=== PATIENT | female | born 1965 | race Caucasian/White ===

== ENCOUNTER 2016-10-28 13:57 | Observation (INO) | payer MEDICARE, MEDICAID ==
[~2016-10-28] VITALS: Ht 162.6 cm; Wt 181.8 kg
[2016-10-28 13:57] VITALS: BP 108/57; PULSE 83; RESP 21; O2SAT 99
[~2016-10-28 13:57] MED LIST: AMPH10SR PO; ASPI-973 PO; ATEN25TA PO; ATRV10T PO; BACL10TA PO; CITA40TA13 PO; FLUT1DIS5 INHALATION; IBUP800T28 PO; INSU100V4 SUBQ; LEVO50TA6 PO; METF850T2 PO; NYST1POW25 TOPICAL; OXYC-466 PO; PANT40TA2 PO; PRAM0.5T3 PO; RANI150T11 PO
--- NOTE | 2016-10-28 14:41 | DRSVH ---
PROCEDURE: X-RAY CHEST ONE VIEW, PORTABLE ([id number]) INDICATIONS: weakness TECHNIQUE: One view of the chest was acquired. COMPARISON: [facility], CR, XR CHEST 1VW, 06/04/2016, 13:46. [facility], CR, XR CHEST 1VW (PORTABLE), 05/26/2016, 16:18. FINDINGS: Surgical changes and devices: None. Lungs and pleura: No pleural effusions or pneumothorax. Lungs are clear. Mediastinum: Mediastinal contours appear normal. Heart size is normal. Bones and chest wall: No suspicious bony lesions. Overlying soft tissues appear unremarkable. IMPRESSION: No acute cardiopulmonary disease. Dictated by: Catalina Barksdale M.D. on 10/28/2016 at 14:39 Approved by: Catalina Barksdale M.D. on 10/28/2016 at 14:39
[2016-10-28] MEDS ORDERED: HYDROmorphone 0.5 mg/0.5 mL iSecure Syringe IVPUSH PRN (15:00)
[2016-10-28] MEDS ORDERED: Ondansetron 2 mg/mL 2 mL Inj IVPUSH PRN ×2 (15:00→19:30)
[2016-10-28] MEDS ORDERED: HYDROmorphone 1 mg/mL Inj IVPUSH PRN (15:00)
[2016-10-28 15:30] LABS: Mean Corpuscular Hemoglobin 28.8 pg (27.0-35.0); Platelet Count 150 bil/L (150-400)
[2016-10-28 15:54] LABS: BASOPHILS % (AUTO) 0 % (0-3); EOSINOPHILS % (AUTO) 7 % (0-5); MONOCYTES % (AUTO) 8 % (4-12); NEUTROPHILS % (AUTO) 67 % (40-74)
[2016-10-28] MEDS ORDERED: 0.9% Sodium Chloride 1,000 ML IV ONE (15:55)
--- NOTE | 2016-10-28 15:55 | ED.REPORT ---
HPI-General Illness Date of Service Oct 28, 2016 ED Provider: Merlin Florez DO The patient is a 51 year old female with history of diabetes mellitus, decubitus ulcers, morbid obesity, hypothyroidism, osteoarthritis, hypertension. GERD, asthma, restless leg syndrome, and depression, who presents to the emergency department complaining of left lower extremity pain and swelling that has worsened over the last few days. She denies recent falls or trauma. She has also noticed generalized weakness and is unable to get herself out of her chair at home. She lives alone and has a apartment maintenance caregiver. She was recently hospitalized from 10/23-10/25 for the same symptoms. She was able to walk at home after she was discharged. Nursing Notes Stated Complaint: WEAKNESS Chief Complaint: General Complaint Nursing Notes Reviewed: Yes Allergies: Coded Allergies: Penicillins (Verified Allergy, Unknown, 10/23/16) amoxicillin (Verified Allergy, Unknown, 10/23/16) Uncoded Allergies: ALL CILLINS (Allergy, Unknown, 06/04/16) Scheduled Aspirin (Aspirin) 81 Mg Tablet 81 MG PO DAILY Atenolol (Atenolol) 25 Mg Tablet 25 MG PO DAILY Atorvastatin (Lipitor) 10 Mg Tab 10 MG PO HS Baclofen (Baclofen) 10 Mg Tablet 10 MG PO QID Budesonide/Formoterol 160-4.5 mcg Inh (Symbicort 160-4.5 mcg Inh) 120 Puff Inhaler 2 PUFFS INHALATION BID Citalopram (Citalopram) 40 Mg Tablet 40 MG PO DAILY Dextroamphetamine/Amphetamine ER (Adderall XR) 10 Mg Capsule 10 MG PO DAILY Insulin Detemir (Levemir U100 Insulin Vial) 100 Unit/1 Ml Vial 50 UNIT SUBQ MORNING Levothyroxine (Levothyroxine) 50 Mcg Tablet 50 MCG PO QAM Metformin (Metformin) 850 Mg Tablet 850 MG PO DAILY Nystatin (Nystatin) 1 Each Powder.ea. 1 APPLIC TOPICAL BID Pantoprazole DR (Protonix) 40 Mg Tablet 40 MG PO DAILY Pramipexole Dihydrochloride (Mirapex) 0.5 Mg Tablet 0.5 MG PO TID Ranitidine (Zantac) 150 Mg Tablet 150 MG PO BID Scheduled PRN Ibuprofen (Ibuprofen) 800 Mg Tablet 800 MG PO TID PRN PRN For Pain oxyCODONE-Acetaminophen 10-325 mg (oxyCODONE-Acetaminophen 10-325 mg) 1 Each Tablet 1 TAB PO Q6H PRN PRN For Pain General Time Seen by MD: 15:19 Chief Complaint Weakness Hx Obtained From: Patient, EMS Arrived By: Ambulance Sudden in Onset?: No Onset Occurred: 3 days ago Symptom Duration: Since onset Location: : Leg left Quality: Painful Radiation: : Does not radiate Severity: Current: Moderate Severity: Maximum: Severe Recent Healthcare: Recent doctor visit, Recent hospitalization Similar Sx Previous: Yes Past Medical History Past Medical History Notes: Last admitted May for cellulitis of bilateral decubitus ulcer Past Medical History Arthritis Morbid obesity ho Proteus UTI 05/2016 Sleep Apnea, given trilogy CPAP Reports: Asthma, Diabetes mellitus, GERD, Hypertension Reports: Morbid Obesity, Thyroid disease Past Surgical History Reports: Back/neck surgery, Carpal tunnel, Tubal ligation Smoking History Current Every Day Smoker Social History Lives alone and has a apartment maintenance caregiver Alcohol Use: Denies alcohol use Drug Use: Denies drug use Other Social History: Local resident Occupation single lives by self Ambulatory Status Wheelchair Review of Systems Full Review of Systems Constitutional: Reports: Weakness - generalized Musculoskeletal: Reports: Extremity pain, Extremity swelling, Joint pain, Joint swelling Neurologic: Reports: Problem walking, Weakness Complete sys rev & neg: except as marked. Physical Exam Vital Signs Vital Signs Date Time Temp Pulse Resp B/P Pulse Ox O2 Delivery O2 Flow Rate FiO2 10/28/16 13:57 36.7 83 21 108/57 99 Room Air Initial VS: Reviewed Head / Eyes: Atraumatic, Normocephalic, PERRL ENT: Mucous membranes moist, Conjunctiva normal, No scleral icterus Neck: Supple, Non-tender, Full range of motion Respiratory: Breath sounds normal, Clear to auscultation, No respiratory distress Cardiovascular: Regular rate & rhythm, Heart sounds normal, Intact distal pulses Abdomen / GI: Soft, Non-tender, No guarding, No rebound, No distention Lymphatic: No lymphadenopathy Extremities: Vascular intact, Neuro intact Neurologic: Alert, Oriented, Nonfocal Psychiatric: Mood/affect normal, Behavior normal, Normal thought content General/Constitutional: Awake, Alert Appearance / Presentation: Positive: Obese, morbidly Skin: Warm Rash / Lesion Notes: She has a stage II decubitus ulcer on her perineum that does not look infected. Interpretation & Diagnostics Lab Results Interpretation Result Diagram: 10/28/16 1450 10/28/16 1450 Test 10/28/16 14:50 10/28/16 15:12 10/28/16 16:20 White Blood Count 5.7th/mm3 (3.8-10.1) Red Blood Count 4.89mil/mm3 (3.90-5.20) Hemoglobin 14.1g/dL (12.0-15.6) Hematocrit 44.0% (35.0-46.0) Mean Corpuscular Volume 90.0fL (81-100) Mean Corpuscular Hemoglobin 28.8pg (27.0-35.0) Mean Corpuscular Hemoglobin Concent 32.0% (32.0-37.0) Red Cell Distribution Width 14.9% (12.3-15.4) Platelet Count 150bil/L (150-400) Neutrophils (%) (Auto) 67% (40-74) Lymphocytes (%) (Auto) 18% (14-46) Monocytes (%) (Auto) 8% (4-12) Eosinophils (%) (Auto) 7% (0-5) Basophils (%) (Auto) 0% (0-3) Sodium Level 137mEq/L (134-144) Potassium Level 5.7mEq/L (3.5-5.2) Chloride Level 99mEq/L (97-108) Carbon Dioxide Level 23mmol/L (18-29) Blood Urea Nitrogen 15mg/dL (6-24) Creatinine 0.40mg/dL (0.57-1.00) Estimat Glomerular Filtration Rate 242mL/min (>59) Glucose Level 130mg/dL (60-99) Calcium Level 8.7mg/dL (8.5-10.1) Total Bilirubin 0.2mg/dL (0.0-1.2) Aspartate Amino Transf (AST/SGOT) 45U/L (0-50) Alanine Aminotransferase (ALT/SGPT) 32U/L (0-32) Alkaline Phosphatase 73U/L (25-150) Troponin T < 0.010ug/L (0.0-0.011) Pro-B-Type Natriuretic Peptide 78.68pg/mL (0-249) Total Protein 6.7g/dL (6.4-8.4) Albumin 3.2g/dL (3.4-5.0) Lactic Acid Level 1.4mmol/L (0.4-2.0) Procalcitonin < 0.05ng/mL (See Comment) Urine Color Yellow (YELLOW) Urine Appearance Hazy (CLEAR,HAZY) Urine pH 6.5 (5.0-8.0) Urine Specific [place] 1.025 (1.003-1.035) Urine Protein Tracemg/dL (NEG,TRACE) Urine Glucose (UA) 500mg/dL (NEGATIVE) Urine Ketones Negativemg/dL (NEGATIVE) Urine Occult Blood Large (NEGATIVE) Urine Nitrite Negative (NEGATIVE) Urine Bilirubin Negative (NEGATIVE) Urine Urobilinogen 1.0mg/dL (NORMAL) Urine Leukocyte Esterase Small (NEGATIVE) Urine RBC 3-10/hpf (0-2) Urine WBC 6-10/hpf (0-5) Urine Epithelial Cells None/hpf (NONE-MOD) Urine Crystals None seen (NONE SEEN) Urine Bacteria Many/hpf (NONE-FEW) Urine Hyaline Casts None/lpf (NONE) Urine Granular Casts None seen (NONE SEEN) Urine Waxy Casts None seen (NONE SEEN) Urine Red Blood Cell Casts None seen (NONE SEEN) Urine White Blood Cell Casts None seen (NONE SEEN) Urine Mucus Present (None Seen) Urine Trichomonas None seen (NONE SEEN) Urine Yeast None (NONE SEEN) Urinalysis Comment None Urine Culture Reflexed Indicated ECG Interpretation ECG Interpretation: Sinus rhythm with a a QRS of 121 otherwise nothing acute. Time: 15:30 Interpreted by: ED physician X-Ray Chest Interpretation Chest Xray Interpretation: IMPRESSION: No acute cardiopulmonary disease. Dictated by: Catalina Barksdale M.D. on 10/28/2016 at 14:39 Interpretation / Wet Read by: Interpret - Radiologist Re-Eval/Medical Decision Med Decision/Clinical Course Inability to care for self, consulted with social work and there seems to be no reasonable outpatient option. Patient will be admitted pending placement. Source of Hx: Old records, EMS Time of Eval: 16:46 Re-Evaluation/Progress Note: Rechecked the patient. She would like to be placed in a snf facility but her insurance requires that she is hospitalized for 3 days. She was in a rehab center for 4 months, home for 14 days, then admitted to the hospital. Time of Eval: 17:38 Re-Evaluation/Progress Note: Will try to admit the patient. Consultation #1: Consulted With: group worker Call Returned at: 16:59 Note: Discussed the patient's case with ED social worker masters. Consultation #2: Consulted With: group worker Call Returned at: 17:21 Note: The patient canceled her caregivers over the weekend because she thought she was going to be admitted today. The company is not open until Monday to contact. The patient may be able to be placed at the rehab center she was recently at for 4 months but this will not be possible tonight. Will need to admit the patient tonight. Consultation #3: Referral / Consult Name: Monica Pruett MD Consulted With: Hospitalist Call Returned at: 19:25 Penology Professor: Will see patient, Agrees with eval, Agrees with plan, Accepts admit Counseled Regarding: Diagnosis, Lab results, Need for admission Discharge & Departure Primary Impression: Failure to thrive Failure to thrive age range: in adult Qualified Code: R62.7 - Adult failure to thrive Additional Impressions: Morbid obesity Obesity type: unspecified obesity type Qualified Code: E66.01 - Morbid ( severe) obesity due to excess calories Decubitus ulcer Pressure ulcer stage: stage II Qualified Code: L89.92 - Pressure ulcer of unspecified site, stage 2 Disposition: ADMITTED TO HOSPITAL Discharge Condition All VS Reviewed: Yes Condition: Stable Referrals: Anjel Stone MD (PCP) Scribe Attestation Portions of this note were transcribed by Desiree Burnett. I, Dr. Florez personally performed the history, physical exam and medical decision-making; I reviewed and confirmed the accuracy of the information in the transcribed note. Signed by: Yefri Jacobsen, 10/28/16 and 1930. copies to: Anjel Stone MD, Timothy S DO Oct 28, 2016 15:55 Desiree Burnett Oct 28, 2016 16:01
[2016-10-28 16:13] LABS: TROPONIN T < 0.010 ug/L (0.0-0.011)
[2016-10-28 16:39] LABS: APPEARANCE,URINE HAZY (CLEAR,HAZY); COLOR,URINE YELLOW (YELLOW); PH,URINE 6.5 (5.0-8.0)
[2016-10-28 16:40] LABS: OCCULT BLOOD,URINE LARGE (NEGATIVE)
[2016-10-28] MEDS ORDERED: SYMINH INHALATION (18:27)
--- NOTE | 2016-10-28 18:50 | NUR ---
Case Management D: Pre-admission HINN letter explained to pt. Pt signed letter acknowledging that medical necessity for admission is not seen. I have encouraged her to call [facility] to have them to review this admission.
[2016-10-28] MEDS ORDERED: Alum-Mag Hydrox-Simeth 30 mL Suspension PO PRN (19:30)
[2016-10-28 19:38] VITALS: BP 127/47; PULSE 80; RESP 16; O2SAT 95
[2016-10-28] MEDS ORDERED: oxyCODONE-Acetamin 10-325 mg Tablet PO PRN (20:40)
[2016-10-28 20:47] VITALS: BP 116/72; PULSE 86; RESP 16; O2SAT 94
[2016-10-28] MEDS ORDERED: Ondansetron 8 mg ODT Tablet PO PRN (20:50)
--- NOTE | 2016-10-28 21:29 | PCM.HPMED ---
Subjective Date of Service Oct 28, 2016 Primary Provider: Admitting Physician: Monica Pruett MD Primary Care Physician: Anjel Stone MD Attending Physician: Monica Pruett MD Admit Status: From the Emergency Department Chief Complaint: Generalized weakness and left lower extremity swelling History of Present Illness: The patient is a 51 year-old female with history of diabetes mellitus, decubitus ulcers, morbid obesity, hypothyroidism, osteoarthritis, hypertension. GERD, asthma, restless leg syndrome, and depression, who presented to the emergency department complaining of left lower extremity pain and swelling that has worsened over the last few days. She denies recent falls or trauma. She has also noticed increased weakness and is unable to get herself out of her chair at home. 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 She was recently hospitalized from 10/23-10/25 for the same symptoms. She was able to walk at home after she was discharged. She feels like she needs more help with her health in general and feels that she is not able to adequately care for herself. Review of Systems: As per HPI, otherwise negative Allergies Coded Allergies: Penicillins (Verified Allergy, Unknown, 10/23/16) amoxicillin (Verified Allergy, Unknown, 10/23/16) Uncoded Allergies: ALL CILLINS (Allergy, Unknown, 06/04/16) Home Medications From ED records and confirmed with patient: Aspirin (Aspirin) 81 Mg Tablet 81 MG PO DAILY Atenolol (Atenolol) 25 Mg Tablet 25 MG PO DAILY Atorvastatin (Lipitor) 10 Mg Tab 10 MG PO HS Baclofen (Baclofen) 10 Mg Tablet 10 MG PO QID -L-c-c-j-c-z-n-i-d-e--/--P-m-s-a-g-l-e-r-o-l- -0-4-9-----4-.-5- -m-c-g- -I-n-h- -(--B-d-v-b-c-u-o-r-t- -6-8-2-----4-.-5- -m-c-g- -I-n-h--)- -1-2-0- -P-u-f-f- -Z-u-x-a-l-e-r- -2- -P-U-F-F-S- -C-V-N-R-S-I-T-I-O-N- -B-I-D- Patient uses Spireva Citalopram (Citalopram) 40 Mg Tablet 40 MG PO DAILY -I-z-w-f-t-s-b-g-w-s-u-h-a-m-i-n-e--/--F-e-g-e-k-s-a-m-i-n-e- -E-R- -(- -W-u-n-e-r-a-l-l- -X-R--)- -1-0- -M-g- -N-x-i-s-u-l-e- -1-0- -M-G- -P-O- -D-A-I-L-Y- Discontinued per patient's notes Insulin Detemir (Levemir U100 Insulin Vial) 100 Unit/1 Ml Vial 50 UNIT SUBQ MORNING Levothyroxine (Levothyroxine) 50 Mcg Tablet 50 MCG PO QAM Metformin (Metformin) 850 Mg Tablet 850 MG PO DAILY Nystatin (Nystatin) 1 Each Powder.ea. 1 APPLIC TOPICAL BID Pantoprazole DR (Protonix) 40 Mg Tablet 40 MG PO DAILY Pramipexole Dihydrochloride (Mirapex) 0.5 Mg Tablet 0.5 MG PO TID Ranitidine (Zantac) 150 Mg Tablet 150 MG PO BID Scheduled PRN Ibuprofen (Ibuprofen) 800 Mg Tablet 800 MG PO TID PRN PRN For Pain oxyCODONE-Acetaminophen 10-325 mg (oxyCODONE-Acetaminophen 10-325 mg) 1 Each Tablet 1 TAB PO Q6H PRN PRN For Pain PMH Cellulitis of bilateral decubitus ulcer Arthritis Morbid obesity ho Proteus UTI 05/2016 Reports: Asthma, Diabetes mellitus, GERD, Hypertension Morbid Obesity, Thyroid disease Depression Degenerative disc disorder Asthma Restless leg syndrome Obstructive sleep apnea Surgical History Adenoidectomy Tubal ligation Tonsillectomy Family History 1 sister with DM Brother from [place] Mother from CHF Father from COPD Brother has HTN Social History Occupation: Does not work Hx Alcohol Use: No Hx Substance Use: No Hx Tobacco Use: Yes Smoking Status: Current Every Day Smoker Living Arrangement: Alone Exam Vital Signs Vital Sign - Last Date Time Temp Pulse Resp B/P Pulse Ox O2 Delivery O2 Flow Rate FiO2 10/28/16 20:47 36.2 86 16 116/72 94 Room Air 10/28/16 19:38 2 Exam General: alert, oriented x3, cooperative, no acute distress, morbidly obese, eating [employer] when I examined her because she was worried about hypoglycemia. Strong odor of old urine. Eyes: PERRL, scleral anicteric Mouth: mouth normal, mucous membranes moist/pink Neck: supple, no thyromegaly, trachea midline Chest & Lungs: Difficult to assess with body habitus, did hear expiratory wheezing anterior B/L Cardiovascular: no murmurs/rubs/gallops, regular rate/rhythm Pulses: Radial (present and equal) Abdomen: soft, non-tender, non-distended, normoactive bowel tones Skin: B/L buttocks have erythema and skin breakdown. At the time of my exam, it was thickly covered with skin protectant cream. Extremities: B/L LE edema, erythema and much worse on the left than the right Psych: Poor insight, appropriate mood and affect . Lab and Diagnostics Labs Lactic acid 1.4; procalcitonin <0.05; ProBNP 78.68; tropnonin T <0.010 Result Diagram: 10/28/16 1450 10/28/16 1450 Microbiology Microbiology 10/28/16 Blood Culture, Received Pending 10/28/16 Urine Culture, Received Pending X-Rays, CTs and MRIs Date of Service: 10/28/16 1409 PROCEDURE: X-RAY CHEST ONE VIEW, PORTABLE ([id number]) INDICATIONS: weakness TECHNIQUE: One view of the chest was acquired. COMPARISON: [facility], CR, XR CHEST 1VW, 06/04/2016, 13:46. [facility], CR, XR CHEST 1VW (PORTABLE), 05/26/2016, 16:18. FINDINGS: Surgical changes and devices: None. Lungs and pleura: No pleural effusions or pneumothorax. Lungs are clear. Mediastinum: Mediastinal contours appear normal. Heart size is normal. Bones and chest wall: No suspicious bony lesions. Overlying soft tissues appear unremarkable. IMPRESSION: No acute cardiopulmonary disease. Dictated by: Catalina Barksdale M.D. on 10/28/2016 at 14:39 12-lead ECG ECG Interpretation: Sinus rhythm with a a QRS of 121 otherwise nothing acute. Time: 15:30 Interpreted by: ED physician Sinus rhythm with a rate of 75, QTc 465 Resident Ellis . Additional Diagnostics: Date of Service: 10/23/16 0837 PROCEDURE: US VENOUS LEG DUPLEX BILATERAL INDICATIONS: Swelling, ro DVT TECHNIQUE: Real-time imaging, as well as color and pulse Doppler interrogation, were performed of the deep veins of both legs from the inguinal ligament to the popliteal fossa. COMPARISON: [facility], , US VENOUS LEG DPLX BILAT, 06/05/2016, 10 :24. FINDINGS: The deep veins are normally compressible, and free of intraluminal thrombus. Color and pulse Doppler demonstrate normal phasic intravascular flow. There is normal augmentation response to distal compression maneuver. IMPRESSION: No DVT bilaterally. Dictated by: Jitendra Mcmahan M.D. on 10/23/2016 at 12:26 Assessment & Plan The patient is a 51 year-old female with history of diabetes mellitus, decubitus ulcers, morbid obesity, hypothyroidism, osteoarthritis, hypertension. GERD, asthma, restless leg syndrome, and depression, who presented to the emergency department complaining of left lower extremity pain and swelling that has worsened over the last few days. She feels that she cannot adequately take care of herself at home. Pressure ulcer stage 2, present on admission, chronic - oozing fluid, erythema consistent to soft tissue infection and/or mild degree pressure sore, no signs of systemic infection from labs/VS. - Overall, this presentation is very similar to prior presentation. - Wound care service consult - Consider Sanders catheter to minimize irritation from urine, but patient also currently has a UTI - Nystatin topical twice a day for possible fungal infection Bilateral lower extremity erythema, present on admission, chronicity unknown - no ulcers - DVT study 6 days ago was negative -Observation for now Urinary tract infection (complicated in a diabetic), present on admission, acute - 6-10 WBC, no epithelial cells, many bacteria, small leukocyte esterase, large occult blood - Urine culture of May 2016 grew Proteus mirabilis resistant to nitrofurantoin and tetracycline - Bactrim DS, 1 tab PO BID 5-7 days - monitor liver function - probiotic ordered Asthma, present on admission, chronic - patient to use her home Spireva - DuoNebs, albuterol Obstructive sleep apnea and obesity-related hypoventilation, present on admission, chronic - patient states that she lost her CPAP - RT consulted and discussed case. RT will provide Diabetes mellitus type 2, present on admission, chronic - Pt takes glargine, 100 units in the a.m. - Pt states even at this amount her diabetes has been out of control - Ordered 50 units glargine with a high correctional scale, adjust as necessary - A1c pending Hypothyroid, present on admission, chronic - Continue levothyroxine Depression, present on admission, chronic - Continue citalopram Chronic pain, present on admission - Continue baclofen, changed her oxycodone to hydrocodone (pt says oxycodone stopped working) Dyslipidemia, present on admission, chronic - Continue aspirin, atorvastatin (kidneys are okay) Hypertension, present on admission, chronic Continue atenolol GERD, present on admission, chronic - continue Protonix, ranitidine Restless legs syndrome, present on admission, chronic - Continue pramipexole Morbid obesity, present on admission, chronic - BMI 68.8 - PT - OT - Dietary consult (this has been ordered in the past) - Acetaminophen as needed for mild pain/fever/headache - Bowel regimen as needed - Antiemetic as needed Patient admitted under inpatient status with expected length of stay > 2 midnights for severity of present symptoms, complexities of treatment plan and risk for adverse events Code status: DNR/DNI confirmed with patient Pain Evaluation: Adequate Pain Control GI Prophylaxis: Proton Pump Inhibitor VTE Prophylaxis: Sub-Q Heparin (Unfractionated) Resuscitation Status: DNR/DNI:Do Not Resuscitate/Intubate Attending Statement Pt seen and examined by myself and agree with above plan. Olga Lidia Ellis DO Oct 28, 2016 21:29 Monica Pruett MD Oct 29, 2016 06:26 #GERD, continue home H2-john #Depression, continue Celexa #Asthma, continue albuterol when necessary #Restless leg syndrome, continue Pramipexol #Obstructive sleep apnea/OHS, we will arranged Triology upon d/c Pain Evaluation: Adequate Pain Control GI Prophylaxis: Proton Pump Inhibitor VTE Prophylaxis: Sub-Q Heparin (Unfractionated) Resuscitation Status: DNR/DNI:Do Not Resuscitate/Intubate Olga Lidia Ellis DO Oct 28, 2016 21:29
[2016-10-28] MEDS ORDERED: Glucose 40% Oral Gel 15 Gm Tube PO PRN (21:30)
[2016-10-28] MEDS: Insulin LISPRO 300 Unit/3 mL Inj SUBQ SCH (22:00)
[2016-10-28] MEDS: HYDROcodone-APAP 10-325 mg PO PRN (22:50)
[2016-10-28] MEDS: Nystatin 100,000 Unit/Gm 15 Gm Powder TOPICAL SCH (23:11)
[2016-10-28] MEDS: SYMBICORT INHALATION SCH (23:13)
[2016-10-29] MEDS: Heparin 5,000 Unit/mL Inj SUBQ SCH ×3 (00:27→16:44)
[2016-10-29 00:28] VITALS: BP 94/62; PULSE 93; RESP 18; O2SAT 92
--- NOTE | 2016-10-29 02:43 | NUR ---
Admit to 1031 Admitted at 2030 for buttock skin and wound care. Placed on bariatric low air loss bed, pt assists with turns and requires max assist and lift for repositioning and turning. Christine area, thighs, and buttocks cleaned, dried; barrier cream and Nystatin powder applied as appropriate. Pt unable to spread legs related to hip pain. Reports high pain and states that chronic use of oxycodone has made it difficult to control pain, Zortman appears to provide adequate relief. Pt does not want to wear CPAP, monitoring with cont pulse ox, O2 via NC to keep sats between 88-92%. Oriented to call light, hospital routines, hourly rounding ongoing.
[2016-10-29] MEDS: HYDROcodone-APAP 10-325 mg PO PRN ×3 (06:09→22:02)
[2016-10-29 06:23] VITALS: BP 137/74; PULSE 78; RESP 19; O2SAT 97
[2016-10-29] MEDS: Insulin LISPRO 300 Unit/3 mL Inj SUBQ SCH ×4 (08:00→22:00)
[2016-10-29] MEDS ORDERED: Amphetamines (Mixed) XR 10 mg ER24 Capsule PO SCH (08:30)
[2016-10-29] MEDS: SYMBICORT INHALATION SCH ×2 (08:36→20:30)
[2016-10-29] MEDS: Trimethoprim-Sulfa 160 mg-800 mg Tablet PO SCH ×2 (08:38→21:59)
[2016-10-29] MEDS: Pantoprazole 40 mg ER24 Tablet PO SCH (08:39)
[2016-10-29] MEDS: Insulin GLARgine 100 Unit/mL Syringe SUBQ SCH (08:41)
[2016-10-29] MEDS: Nystatin 100,000 Unit/Gm 15 Gm Powder TOPICAL SCH ×2 (08:42→21:59)
[2016-10-29 10:07] VITALS: BP 120/72; PULSE 75; RESP 22; O2SAT 95
--- NOTE | 2016-10-29 14:59 | NUR ---
Social Work Note: Initial Assessment Data& Assessment: EMR Reviewed. SHAHAB met with pt at bedside to discuss discharge planning, SW role explained. Fiona Sheikh is a 51 year old female under observation beginning on 10/28/2016 for decubitus. Pt has Medicare and [facility] supplement insurance coverage and sees Anjel Stone MD for primary care. Pt lives in [place] in an apt. on the 3rd floor (elevator access). Pt has a 4ww, manual wheelchair and life chair at home. where she has caregivers every day of the week and 128 hours a month total through [employer]. [employer] CM is Abril Crowder, H&P Faxed. Pt Pt is currently open with Melany LIZAMA, PT, OT and INTERIOR DESIGN DIRECTOR. Pt has been to [facility] recently. Pt explained she originally anticipated requiring SNF and told her [employer] Caregivers that she wouldn't require their services this weekend. Pt explained that she thought she was "worse off" than she actually is and now realizes she is able to get out of bed and would be fine to go home with his chair lift when medically ready. SHAHAB left a message for [facility] [employer] department inquiring if pt is able to have her [employer] caregiving resumed this weekend. Pt provided with DPOA/Advanced Directive paperwork. Pt will require Wheelchair van when medically ready. Pt denies any other needs. SW to continue to follow to ensure the resumption of her [employer] caregiving prior to pt discharge. Plan: Anticipated discharge home via wheelchair van and resumed [employer] caregiving and resumed Melany REYES RN, PT, OT and INTERIOR DESIGN DIRECTOR when medically ready. Pt denies any other needs. SW to continue to follow to ensure the resumption of her [employer] caregiving prior to pt discharge. MARLON Grossman Addendum: 10/29/16 at 1507 by MICHAEL MOLINA Amended: Links added.
--- NOTE | 2016-10-29 15:16 | NUR ---
Case Management D: Pre-admission HINN was issued yesterday. I had also encouraged pt to call [facility], she is aware phone number is on copy of HINN letter. I did also provide observation information should [facility] believe that there was medical necessity for admission.
[2016-10-29 15:37] VITALS: BP 130/71; PULSE 73; RESP 18; O2SAT 95
--- NOTE | 2016-10-29 16:38 | NUR ---
NUTRITION ASSESSMENT: Assess: 51 YO F readmitted with bilateral thigh decubitus. Her PO has been good at 100% all meals. Spoke with pt about wt loss last admit 06/04/16 and provided handouts about general healthy diet guidelines and wt loss tips. Also reviewed DM diet with pt as she had many questions about it. Emphasized the importance of getting enough protein to help with wound healing as well. Pt is motivated to follow DM diet because she does not want to lose any toes due to complications. PMHX: Asthma, HTN, type 2 DM, wheelchair bound. DIET: Consistent Carb. PO intake 100%. LABS: Reviewed. K+ 5.7, Cr 0.40, Glu 130, A1c pending, Triglycerides 162. MEDICATIONS: Reviewed. Insulin, Synthroid. GI: No BM noted. SKIN: Pressure ulcer, stage 2, present on admission, chronic, oozing fluid, erythema consistent to soft tissue infection and/or mild degree pressure sore, no signs of systemic infection from labs/VS. Overall, this presentation is very similar to prior presentation. Wound care service consult ordered. WEIGHT: 181.8 kg, BMI 68.0 kg/m2. ESTIMATED NEEDS: WOUNDS/BMI Calories: 5580-5271 kcal/day (30-35 kcal/kg Adj. BW of 85.6 kg) Protein: 128-155 g/day (1.5-1.8g/kg Adj. BW) NUTRITION DIAGNOSIS: 1) Increased nutrient needs related to wound healing as evidenced by buttock wounds. INTERVENTION: 1) Continue current diet as ordered. 2) Spoke with pt 06/14/16 about wt loss tips, DM diet and getting enough protein for wound healing 3) Consider sending Hira BID if wounds do not improve MONITOR/EVALUATE: PO intake, labs, wounds, GI/nutrition status. Follow per moderate nutrition risk guidelines.
--- NOTE | 2016-10-29 18:44 | PCM.PNMED ---
Subjective Date of Service Oct 29, 2016 Subjective no new complaints Exam Vital Signs Vital Sign - Last Date Time Temp Pulse Resp B/P Pulse Ox O2 Delivery O2 Flow Rate FiO2 10/29/16 15:37 36.8 73 18 130/71 95 Nasal Cannula 1.50 Intake and Output 10/28/16 10/28/16 10/29/16 Cumulative From/Thru 15:00 23:00 07:00 10/28/16 13:57 - 10/29/16 06:58 Intake Total 1000 ml 800 ml 1800 ml Balance 1000 ml 800 ml 1800 ml Intake Oral 800 ml 800 ml IV Total 1000 ml 1000 ml # Voids 4 4 # Bowel Movements 1 1 Exam General: alert, oriented x3, cooperative, no acute distress, morbidly obese, Eyes: PERRL, scleral anicteric Mouth: mouth normal, mucous membranes moist/pink Neck: supple, no thyromegaly, trachea midline Chest & Lungs: Difficult to assess with body habitus, did hear expiratory wheezing anterior B/L Cardiovascular: no murmurs/rubs/gallops, regular rate/rhythm Pulses: Radial (present and equal) Abdomen: soft, non-tender, non-distended, normoactive bowel tones Skin: B/L buttocks have erythema and skin breakdown. At the time of my exam, it was thickly covered with skin protectant cream. Extremities: B/L LE edema, erythema and much worse on the left than the right Psych: Poor insight, appropriate mood and affect IVs and Medications Medications Reviewed: Medications were reviewed in detail Lab and Diagnostics Result Diagram: 10/28/16 1450 10/28/16 1450 Microbiology Microbiology 10/28/16 Blood Culture, Received Pending 10/28/16 Urine Culture, Received Pending X-Rays, CTs and MRIs Date of Service: 10/28/16 1409 PROCEDURE: X-RAY CHEST ONE VIEW, PORTABLE ([id number]) INDICATIONS: weakness TECHNIQUE: One view of the chest was acquired. COMPARISON: [facility], CR, XR CHEST 1VW, 06/04/2016, 13:46. [facility], CR, XR CHEST 1VW (PORTABLE), 05/26/2016, 16:18. FINDINGS: Surgical changes and devices: None. Lungs and pleura: No pleural effusions or pneumothorax. Lungs are clear. Mediastinum: Mediastinal contours appear normal. Heart size is normal. Bones and chest wall: No suspicious bony lesions. Overlying soft tissues appear unremarkable. IMPRESSION: No acute cardiopulmonary disease. Dictated by: Catalina Barksdale M.D. on 10/28/2016 at 14:39 12-lead ECG ECG Interpretation: Sinus rhythm with a a QRS of 121 otherwise nothing acute. Time: 15:30 Interpreted by: ED physician Sinus rhythm with a rate of 75, QTc 465 Resident hRonda . Additional Diagnostics Date of Service: 10/23/16 0837 PROCEDURE: US VENOUS LEG DUPLEX BILATERAL INDICATIONS: Swelling, ro DVT TECHNIQUE: Real-time imaging, as well as color and pulse Doppler interrogation, were performed of the deep veins of both legs from the inguinal ligament to the popliteal fossa. COMPARISON: [facility], , US VENOUS LEG DPLX BILAT, 06/05/2016, 10 :24. FINDINGS: The deep veins are normally compressible, and free of intraluminal thrombus. Color and pulse Doppler demonstrate normal phasic intravascular flow. There is normal augmentation response to distal compression maneuver. IMPRESSION: No DVT bilaterally. Dictated by: Jitendra Mcmahan M.D. on 10/23/2016 at 12:26 Assessment & Plan The patient is a 51 year-old female with history of diabetes mellitus, decubitus ulcers, morbid obesity, hypothyroidism, osteoarthritis, hypertension. GERD, asthma, restless leg syndrome, and depression, who presented to the emergency department complaining of left lower extremity pain and swelling that has worsened over the last few days. She feels that she cannot adequately take care of herself at home. # Pressure ulcer stage 2, present on admission, chronic - oozing fluid, erythema consistent to soft tissue infection and/or mild degree pressure sore, no signs of systemic infection from labs/VS. - Overall, this presentation is very similar to prior presentation. - Wound care to see her in am - Nystatin topical twice a day for possible fungal infection -no need for antibiotics # Bilateral lower extremity erythema, present on admission, chronicity unknown - no ulcers - DVT study 6 days ago was negative -Observation for now # Urinary tract infection (complicated in a diabetic), present on admission, acute - 6-10 WBC, no epithelial cells, many bacteria, small leukocyte esterase, large occult blood - Urine culture of May 2016 grew Proteus mirabilis resistant to nitrofurantoin and tetracycline - Bactrim DS, 1 tab PO BID 5-7 days - monitor liver function - probiotic ordered # Asthma, present on admission, chronic - patient to use her home Spireva - DuoNebs, albuterol # Obstructive sleep apnea and obesity-related hypoventilation, present on admission, chronic - patient states that she lost her CPAP - RT consulted and discussed case. RT will provide # Diabetes mellitus type 2, present on admission, chronic - Pt takes glargine, 100 units in the a.m. - Pt states even at this amount her diabetes has been out of control - Ordered 50 units glargine with a high correctional scale, adjust as necessary - A1c pending # Hypothyroid, present on admission, chronic - Continue levothyroxine # Depression, present on admission, chronic - Continue citalopram # Chronic pain, present on admission - Continue baclofen, changed her oxycodone to hydrocodone (pt says oxycodone stopped working) # Dyslipidemia, present on admission, chronic - Continue aspirin, atorvastatin (kidneys are okay) # Hypertension, present on admission, chronic Continue atenolol #GERD, present on admission, chronic - continue Protonix, ranitidine # Restless legs syndrome, present on admission, chronic - Continue pramipexole # Morbid obesity, present on admission, chronic - BMI 68.8 - PT - OT - Dietary consult (this has been ordered in the past) - Acetaminophen as needed for mild pain/fever/headache - Bowel regimen as needed - Antiemetic as needed Code status: DNR/DNI confirmed with patient discharge tomorrow ,obs status GI Prophylaxis: Proton Pump Inhibitor VTE Prophylaxis: Sub-Q Heparin (Unfractionated) Resuscitation Status: DNR/DNI:Do Not Resuscitate/Intubate Wicho Ny MD Oct 29, 2016 18:44
--- NOTE | 2016-10-29 20:07 | NUR ---
Pain Patient reported pain off and on during shift. Ordered pain medications administered, which patient reports was effective. Care is ongoing.
[2016-10-29 21:26] VITALS: BP 132/73; PULSE 80; RESP 18; O2SAT 95
[2016-10-30] MEDS: Heparin 5,000 Unit/mL Inj SUBQ SCH ×4 (01:02→23:40)
--- NOTE | 2016-10-30 04:25 | NUR ---
CPAP Refusal CPAP had been ordered for patient. Upon discussion with patient, patient has refused the use of a CPAP despite education. She states that she used to wear one until device was lost. She states that she does not want, nor "needs" the CPAP. 2L O2 via NC is being worn, GEODETIC ENGINEER is applied, and HOB elevated. Will continue to monitor, and continue Q1 checks.
[2016-10-30 06:10] VITALS: BP 145/78; PULSE 74; RESP 18; O2SAT 98
[2016-10-30] MEDS: HYDROcodone-APAP 10-325 mg PO PRN ×3 (06:22→21:54)
[2016-10-30] MEDS: SYMBICORT INHALATION SCH ×2 (07:59→20:14)
[2016-10-30] MEDS: Insulin LISPRO 300 Unit/3 mL Inj SUBQ SCH ×4 (07:59→22:00)
[2016-10-30] MEDS: Trimethoprim-Sulfa 160 mg-800 mg Tablet PO SCH ×2 (08:00→20:13)
[2016-10-30] MEDS: Pantoprazole 40 mg ER24 Tablet PO SCH (08:02)
[2016-10-30] MEDS: Nystatin 100,000 Unit/Gm 15 Gm Powder TOPICAL SCH ×2 (08:03→20:14)
[2016-10-30] MEDS: Insulin GLARgine 100 Unit/mL Syringe SUBQ SCH (08:03)
--- NOTE | 2016-10-30 09:00 | NUR ---
late note: patient ate 100% of lunch and dinner on 10/29/16/ Addendum: 10/30/16 at 0900 by ADIA BRAUN CNA Amended: Links added.
[2016-10-30 09:40] LABS: BASOPHILS % (AUTO) 0.7 % (0-3); MONOCYTES % (AUTO) 9.9 % (4-12); Mean Corpuscular Hemoglobin 28.8 pg (27.0-35.0); Mean Corpuscular Volume 92.1 fL (81-100); NEUTROPHILS % (AUTO) 64.5 % (40-74); Platelet Count 235 bil/L (150-400)
--- NOTE | 2016-10-30 10:12 | PCM.DIMED ---
Discharge Instructions Date of Service Oct 30, 2016 Dates of Hospitalization Oct 28, 2016 at 19:30 Discharge Diagnosis Discharge Diagnosis # Perineal/right gluteal superficial irritation and ulceration ,acute,recurrent ,poa #Bilateral lower extremity erythema, no ulcers, likely Gr1 pressure sore, DVT study negative on recent admission .acute, # Urinary tract infection (complicated in a diabetic), present on admission, acute Chronic, stable # Asthma, present on admission, chronic # Obstructive sleep apnea and obesity-related hypoventilation, present on admission, chronic # Diabetes mellitus type 2, present on admission, chronic # Hypothyroid, present on admission, chronic # Depression, present on admission, chronic # Chronic pain, present on admission # Dyslipidemia, present on admission, chronic # Hypertension, present on admission, chronic #GERD, present on admission, chronic # Restless legs syndrome, present on admission, chronic # Morbid obesity, present on admission, chronic Diet Low fat, Low Sodium, Heart Healthy, Diabetic Activity Limited until seen by PCP Call your provider Fever or Chills, Shortness of breath, Bleeding, Chest pain, Vomitting, Excessive diarrhea, Weakness (unilateral), Other Patient Instructions You were hospitalized due to superficial right buttock ulceration and UTI . No sign of infection on ulceration.. antibiotics given for UTI . Please continue Bactrim for 3 more days. Wound care nurse evaluated on recent hospitalization recommend doing local skin care at home and trying to keep the area dry as much as possible. Superficial ulceration unchanged from recent hospitalization. Ulceration does not look to be related to pressure sore based on location. Please follow-up with PCP in 1 week. Follow-up plan Please follow-up with PCP in 1 week. Follow-up Provider: Anjel Stone MD Follow-up with PCP in: 1 week Wicho Ny MD Oct 30, 2016 10:12
[2016-10-30] MEDS ORDERED: SULF1TAB35 PO (10:13)
[2016-10-30 10:32] VITALS: BP 127/75; PULSE 69; RESP 22; O2SAT 97
--- NOTE | 2016-10-30 13:23 | NUR ---
Social Work Note: Readiness for Discharge Data& Assessment: Per MD pt is getting closer to being medically ready for discharge. Although pt [employer] caregivers are off this weekend, pt discussed plan with her sister to come and help her out at home this evening if she were discharged today. Pt informed SW that she feels comfortable discharging home for tonight and is able to use her chair lift. Pt will require bariatric wheelchair van transportation in order to transport safely. Pt does not meet criteria for BLS at this time. SW made inquiries with [employer] that handles all Medicaid transportation through [employer] on the weekends. [employer] informed SW that they are unable to locate any transporters that are able to transport pt today due to requirement for bariatric wheelchair transportation. SW inquired about quote for private pay wheelchair van, and the company informed SW that there are not any bariatric wheelchair transporters available today regardless of payer. SW discussed this with pt, pt is concerned about cost of staying another night, financial assistance application provided. also notified. SW also left another message with [facility] caregiving services regarding pt upcoming discharge. Pt denies any other needs at this time. Plan: Anticipated discharge home via [facility] wheelchair van when medically ready and when appropriate transforation is available. SW to contact [employer] tomorrow morning 10/31/2016 regarding transportation availability. SW to continue to follow. MARLON Grossman
--- NOTE | 2016-10-30 15:39 | PCM.PNMED ---
Subjective Date of Service Oct 30, 2016 Subjective No new complaints, discharge initially planned but no bariatric transport available today Exam Vital Signs Vital Sign - Last Date Time Temp Pulse Resp B/P Pulse Ox O2 Delivery O2 Flow Rate FiO2 10/30/16 10:32 36.7 69 22 127/75 97 Nasal Cannula 2.00 Intake and Output 10/29/16 10/29/16 10/30/16 Cumulative From/Thru 15:00 23:00 07:00 10/28/16 13:57 - 10/30/16 06:20 Intake Total 1800 ml 800 ml 4400 ml Output Total 1300 ml 720 ml 2020 ml Balance 500 ml 80 ml 2380 ml Intake Oral 1800 ml 800 ml 3400 ml IV Total 1000 ml Output Urine Total 1300 ml 720 ml 2020 ml # Voids 6 3 13 # Bowel Movements 1 2 Exam eneral: alert, oriented x3, cooperative, no acute distress, morbidly obese, Eyes: PERRL, scleral anicteric Mouth: mouth normal, mucous membranes moist/pink Neck: supple, no thyromegaly, trachea midline Chest & Lungs: Difficult to assess with body habitus, did hear expiratory wheezing anterior B/L Cardiovascular: no murmurs/rubs/gallops, regular rate/rhythm Pulses: Radial (present and equal) Abdomen: soft, non-tender, non-distended, normoactive bowel tones Skin: B/L buttocks have erythema and skin breakdown. At the time of my exam, it was thickly covered with skin protectant cream. Extremities: B/L LE edema, erythema and much worse on the left than the right Psych: Poor insight, appropriate mood and affect IVs and Medications Medications Reviewed: Medications were reviewed in detail Lab and Diagnostics Result Diagram: 10/30/1691610/30/16916 Microbiology Microbiology 10/28/16 Blood Culture, Received Pending 10/28/16 Urine Culture, Received Pending X-Rays, CTs and MRIs Date of Service: 10/28/16 1409 PROCEDURE: X-RAY CHEST ONE VIEW, PORTABLE ([id number]) INDICATIONS: weakness TECHNIQUE: One view of the chest was acquired. COMPARISON: [facility], CR, XR CHEST 1VW, 06/04/2016, 13:46. [facility], CR, XR CHEST 1VW (PORTABLE), 05/26/2016, 16:18. FINDINGS: Surgical changes and devices: None. Lungs and pleura: No pleural effusions or pneumothorax. Lungs are clear. Mediastinum: Mediastinal contours appear normal. Heart size is normal. Bones and chest wall: No suspicious bony lesions. Overlying soft tissues appear unremarkable. IMPRESSION: No acute cardiopulmonary disease. Dictated by: Catalina Barksdale M.D. on 10/28/2016 at 14:39 12-lead ECG ECG Interpretation: Sinus rhythm with a a QRS of 121 otherwise nothing acute. Time: 15:30 Interpreted by: ED physician Sinus rhythm with a rate of 75, QTc 465 Resident Rhonda . Additional Diagnostics Date of Service: 10/23/16 0837 PROCEDURE: US VENOUS LEG DUPLEX BILATERAL INDICATIONS: Swelling, ro DVT TECHNIQUE: Real-time imaging, as well as color and pulse Doppler interrogation, were performed of the deep veins of both legs from the inguinal ligament to the popliteal fossa. COMPARISON: [facility], , US VENOUS LEG DPLX BILAT, 06/05/2016, 10 :24. FINDINGS: The deep veins are normally compressible, and free of intraluminal thrombus. Color and pulse Doppler demonstrate normal phasic intravascular flow. There is normal augmentation response to distal compression maneuver. IMPRESSION: No DVT bilaterally. Dictated by: Jitendra Mcmahan M.D. on 10/23/2016 at 12:26 Assessment & Plan The patient is a 51 year-old female with history of diabetes mellitus, decubitus ulcers, morbid obesity, hypothyroidism, osteoarthritis, hypertension. GERD, asthma, restless leg syndrome, and depression, who presented to the emergency department complaining of left lower extremity pain and swelling that has worsened over the last few days. She feels that she cannot adequately take care of herself at home. # Perineal/right gluteal superficial irritation and ulceration ,acute,recurrent ,poa - Overall, this presentation is very similar to prior presentation. - Continue home Wound care - Nystatin topical twice a day for possible fungal infection -no need for antibiotics # Bilateral lower extremity erythema, present on admission, chronicity unknown - no ulcers - DVT study 6 days ago was negative -Observation for now # Urinary tract infection (complicated in a diabetic), present on admission, acute - 6-10 WBC, no epithelial cells, many bacteria, small leukocyte esterase, large occult blood - Urine culture growing Klebsiella pansensitive - Bactrim DS, 1 tab PO BID 5-7 days - probiotic ordered # Asthma, present on admission, chronic - patient to use her home Spireva - DuoNebs, albuterol # Obstructive sleep apnea and obesity-related hypoventilation, present on admission, chronic - patient states that she lost her CPAP - RT consulted and discussed case. RT will provide # Diabetes mellitus type 2, present on admission, chronic - Pt takes glargine, 100 units in the a.m. - Pt states even at this amount her diabetes has been out of control - Ordered 50 units glargine with a high correctional scale, adjust as necessary - A1c pending # Hypothyroid, present on admission, chronic - Continue levothyroxine # Depression, present on admission, chronic - Continue citalopram # Chronic pain, present on admission - Continue baclofen, changed her oxycodone to hydrocodone (pt says oxycodone stopped working) # Dyslipidemia, present on admission, chronic - Continue aspirin, atorvastatin (kidneys are okay) # Hypertension, present on admission, chronic Continue atenolol #GERD, present on admission, chronic - continue Protonix, ranitidine # Restless legs syndrome, present on admission, chronic - Continue pramipexole # Morbid obesity, present on admission, chronic - BMI 68.8 - PT - OT - Dietary consult (this has been ordered in the past) - Acetaminophen as needed for mild pain/fever/headache - Bowel regimen as needed - Antiemetic as needed Code status: DNR/DNI confirmed with patient discharge initially planned but no bariatric transport available today. Will discharge her tomorrow GI Prophylaxis: Proton Pump Inhibitor VTE Prophylaxis: Sub-Q Heparin (Unfractionated) Resuscitation Status: DNR/DNI:Do Not Resuscitate/Intubate Wicho Ny MD Oct 30, 2016 15:39
[2016-10-30 15:41] VITALS: BP 123/73; PULSE 69; RESP 18; O2SAT 97
--- NOTE | 2016-10-30 16:01 | NUR ---
Skin / activity Pt assessed w/ PROGRAM DIRECTOR CABLE TELEVISION, pt buttocks w/ open wounds and minimal bright red drainage. Pt incontinent, skin cleaned frequently and barrier wipes used w/ each cleaning. Pt able to roll on to her side w/ minimal assist. Encouraged as much independence as possible. L upper thigh, almost groin area is swollen and bright red. Pt states this is normal, and in fact, better that in has been. Continue w/ frequently skin checks and cleaning.
--- NOTE | 2016-10-30 16:13 | NUR ---
Patient requiring toileting 2-3 times per hour. Addendum: 10/30/16 at 1614 by ADIA BRAUN CNA Amended: Links added.
--- NOTE | 2016-10-30 16:14 | NUR ---
Patient is requiring toileting 2-3 times per hour. Barrier shield wipes are used with each occurrence. Addendum: 10/30/16 at 1616 by ADIA BRAUN CNA Amended: Links added.
[2016-10-30 20:19] VITALS: BP 124/76; PULSE 79; RESP 18; O2SAT 96
--- NOTE | 2016-10-31 02:34 | NUR ---
Skin protection/ Turning. Patient continues to be incontinent of urine. Frequent brief changes and occasional linen changes are needed. Barrier wipes are being used with each cleaning. Patient has been encouraged to turn, and assistance has been offered to relieve pressure from buttock area, but pt has refused. Pt states that her hips hurt too much, and she is not able to lay on one side or another. Scheduled baclofen, and PRN [place] have been used to help alleviate pain. Will continue to monitor, and continue Q1 hr checks.
[2016-10-31 04:37] VITALS: BP 147/83; PULSE 71; RESP 20; O2SAT 97
[2016-10-31] MEDS: HYDROcodone-APAP 10-325 mg PO PRN ×2 (06:06→14:29)
[2016-10-31] MEDS: Insulin LISPRO 300 Unit/3 mL Inj SUBQ SCH ×4 (08:00→21:14)
[2016-10-31] MEDS: Insulin GLARgine 100 Unit/mL Syringe SUBQ SCH (08:14)
[2016-10-31] MEDS: Nystatin 100,000 Unit/Gm 15 Gm Powder TOPICAL SCH ×2 (10:34→21:11)
[2016-10-31] MEDS: Trimethoprim-Sulfa 160 mg-800 mg Tablet PO SCH ×2 (10:35→21:11)
[2016-10-31] MEDS: Pantoprazole 40 mg ER24 Tablet PO SCH (10:35)
[2016-10-31] MEDS: SYMBICORT INHALATION SCH ×2 (10:36→21:11)
[2016-10-31] MEDS: Heparin 5,000 Unit/mL Inj SUBQ SCH ×2 (10:36→16:43)
--- NOTE | 2016-10-31 10:44 | NUR ---
Called and left message for [employer] transportation, patient is needing bariatric transport and yellow cab cannot accommodate this. [facility] is closed today and we do not have another way to transport. Waiting on [employer] to call back. Updated ACCOUNT RESOLUTION EXPERT Addendum: 10/31/16 at 1403 by SADE REDD CM [employer] is unable to use our new [employer] wheelchairs and she would have needed to transport patient prior to Noon. [facility] had no available drivers as it is an observed holiday. ACCOUNT RESOLUTION EXPERT and SUMEET LIZAMA updated
--- NOTE | 2016-10-31 11:08 | NUR ---
Pain Patient reported 9/10 hip and back pain. 800 mg ibuprofen given. Denies nausea. Patient repositioned by staff for comfort and skin protection measures. Call light and tray table within reach. Will continue to monitor patient hourly.
[2016-10-31] MEDS ORDERED: SULF1TAB7 PO (11:24)
--- NOTE | 2016-10-31 13:02 | PCM.DC.MED ---
Discharge Summary Date of Service Oct 31, 2016 Dates of Hospitalization Date of Hospital Admission Oct 28, 2016 at 19:30 Date of Discharge: Oct 31, 2016 Providers: Admitting Physician: Monica Pruett MD Primary Care Physician: Anjel Stone MD Attending Physician: Monica Pruett MD Diagnosis at Time of Discharge Diagnosis at Time of Discharge # Perineal/right gluteal superficial irritation and ulceration ,acute,recurrent ,poa #Bilateral lower extremity erythema, no ulcers, likely Gr1 pressure sore, DVT study negative on recent admission .acute, # Urinary tract infection (complicated in a diabetic), present on admission, acute Chronic, stable # Asthma, present on admission, chronic # Obstructive sleep apnea and obesity-related hypoventilation, present on admission, chronic # Diabetes mellitus type 2, present on admission, chronic # Hypothyroid, present on admission, chronic # Depression, present on admission, chronic # Chronic pain, present on admission # Dyslipidemia, present on admission, chronic # Hypertension, present on admission, chronic #GERD, present on admission, chronic # Restless legs syndrome, present on admission, chronic # Morbid obesity, present on admission, chronic Consultations No residential solar consultant was involved on this case Procedures XRay, CTs & MRIs Date of Service: 10/28/16 1409 PROCEDURE: X-RAY CHEST ONE VIEW, PORTABLE ([id number]) INDICATIONS: weakness TECHNIQUE: One view of the chest was acquired. COMPARISON: [facility], CR, XR CHEST 1VW, 06/04/2016, 13:46. [facility], CR, XR CHEST 1VW (PORTABLE), 05/26/2016, 16:18. FINDINGS: Surgical changes and devices: None. Lungs and pleura: No pleural effusions or pneumothorax. Lungs are clear. Mediastinum: Mediastinal contours appear normal. Heart size is normal. Bones and chest wall: No suspicious bony lesions. Overlying soft tissues appear unremarkable. IMPRESSION: No acute cardiopulmonary disease. Dictated by: Catalina Barksdale M.D. on 10/28/2016 at 14:39 ECG 12 Lead ECG Interpretation: Sinus rhythm with a a QRS of 121 otherwise nothing acute. Time: 15:30 Interpreted by: ED physician Sinus rhythm with a rate of 75, QTc 465 Resident Rhonda . Other Diagnostics Date of Service: 10/23/16 0899 PROCEDURE: US VENOUS LEG DUPLEX BILATERAL INDICATIONS: Swelling, ro DVT TECHNIQUE: Real-time imaging, as well as color and pulse Doppler interrogation, were performed of the deep veins of both legs from the inguinal ligament to the popliteal fossa. COMPARISON: [facility], , US VENOUS LEG DPLX BILEFRA, 06/05/2016, 10 :24. FINDINGS: The deep veins are normally compressible, and free of intraluminal thrombus. Color and pulse Doppler demonstrate normal phasic intravascular flow. There is normal augmentation response to distal compression maneuver. IMPRESSION: No DVT bilaterally. Dictated by: Jitendra Mcmahan M.D. on 10/23/2016 at 12:26 Brief History The patient is a 51 year-old female with history of diabetes mellitus, decubitus ulcers, morbid obesity, hypothyroidism, osteoarthritis, hypertension. GERD, asthma, restless leg syndrome, and depression, who presented to the emergency department complaining of left lower extremity pain and swelling that has worsened over the last few days. She denies recent falls or trauma. She has also noticed increased weakness and is unable to get herself out of her chair at home. She lives alone and has a purchaser [employer] caregiver. She was recently hospitalized from 10/23-10/25 for the same symptoms. She was able to walk at home after she was discharged. She feels like she needs more help with her health in general and feels that she is not able to adequately care for herself. Hospital Course The patient is a 51 year-old female with history of diabetes mellitus, decubitus ulcers, morbid obesity, hypothyroidism, osteoarthritis, hypertension. GERD, asthma, restless leg syndrome, and depression, who presented to the emergency department complaining of left lower extremity pain and swelling that has worsened over the last few days. She feels that she cannot adequately take care of herself at home. # Perineal/right gluteal superficial irritation and ulceration ,acute,recurrent ,poa - Overall, this presentation is very similar to prior presentation. - Continue home Wound care - Nystatin topical twice a day -no need for antibiotics # Bilateral lower extremity erythema, present on admission, chronicity unknown - no ulcers - DVT study 6 days ago was negative -Observation for now # Urinary tract infection (complicated in a diabetic), present on admission, acute - 6-10 WBC, no epithelial cells, many bacteria, small leukocyte esterase, large occult blood - Urine culture growing Klebsiella pansensitive - Bactrim DS, 1 tab PO BID 3 more days # Asthma, present on admission, chronic - patient to use her home Spiriva - DuoNebs, albuterol # Obstructive sleep apnea and obesity-related hypoventilation, present on admission, chronic - patient states that she lost her CPAP - Needs to see PCP and get a prescription # Diabetes mellitus type 2, present on admission, chronic - Pt takes glargine, 100 units in the a.m. - Pt states even at this amount her diabetes has been out of control -Advised to check her glucose 3 times a day and adjust accordingly - A1c 6.9 # Hypothyroid, present on admission, chronic - Continue levothyroxine # Depression, present on admission, chronic - Continue citalopram # Chronic pain, present on admission - Continue baclofen, changed her oxycodone to hydrocodone (pt says oxycodone stopped working) # Dyslipidemia, present on admission, chronic - Continue aspirin, atorvastatin (kidneys are okay) # Hypertension, present on admission, chronic Continue atenolol #GERD, present on admission, chronic - continue Protonix, ranitidine # Restless legs syndrome, present on admission, chronic - Continue pramipexole # Morbid obesity, present on admission, chronic - BMI 68.8 -Patient states was evaluated for bariatric surgery. She has lost 100 pound by herself and she will follow-up Code status: DNR/DNI confirmed with patient discharge home with home health. Reinforced the need for local wound care and frequent repositioning Condition on discharge stable Exam Vital Signs (Last) Date Time Temp Pulse Resp B/P Pulse Ox O2 Delivery O2 Flow Rate FiO2 10/31/16 04:37 36.7 71 20 147/83 97 Nasal Cannula 1.50 Exam eneral: alert, oriented x3, cooperative, no acute distress, morbidly obese, Eyes: PERRL, scleral anicteric Mouth: mouth normal, mucous membranes moist/pink Neck: supple, no thyromegaly, trachea midline Chest & Lungs: Difficult to assess with body habitus, did hear expiratory wheezing anterior B/L Cardiovascular: no murmurs/rubs/gallops, regular rate/rhythm Pulses: Radial (present and equal) Abdomen: soft, non-tender, non-distended, normoactive bowel tones Skin: B/L buttocks have erythema and superficial skin breakdown. No discharge Extremities: B/L LE edema, erythema and much worse on the left than the right Psych: Poor insight, appropriate mood and affect Test 10/28/16 14:50 10/28/16 15:12 10/28/16 16:20 10/29/16 08:09 Troponin T < 0.010ug/L (0.0-0.011) Pro-B-Type Natriuretic Peptide 78.68pg/mL (0-249) Lactic Acid Level 1.4mmol/L (0.4-2.0) Procalcitonin < 0.05ng/mL (See Comment) Urine Color Yellow (YELLOW) Urine Appearance Hazy (CLEAR,HAZY) Urine pH 6.5 (5.0-8.0) Urine Specific [place] 1.025 (1.003-1.035) Urine Protein Tracemg/dL (NEG,TRACE) Urine Glucose (UA) 500mg/dL (NEGATIVE) Urine Ketones Negativemg/dL (NEGATIVE) Urine Occult Blood Large (NEGATIVE) Urine Nitrite Negative (NEGATIVE) Urine Bilirubin Negative (NEGATIVE) Urine Urobilinogen 1.0mg/dL (NORMAL) Urine Leukocyte Esterase Small (NEGATIVE) Urine RBC 3-10/hpf (0-2) Urine WBC 6-10/hpf (0-5) Urine Epithelial Cells None/hpf (NONE-MOD) Urine Crystals None seen (NONE SEEN) Urine Bacteria Many/hpf (NONE-FEW) Urine Hyaline Casts None/lpf (NONE) Urine Granular Casts None seen (NONE SEEN) Urine Waxy Casts None seen (NONE SEEN) Urine Red Blood Cell Casts None seen (NONE SEEN) Urine White Blood Cell Casts None seen (NONE SEEN) Urine Mucus Present (None Seen) Urine Trichomonas None seen (NONE SEEN) Urine Yeast None (NONE SEEN) Urinalysis Comment None Urine Culture Reflexed Indicated Hemoglobin A1c 6.9% (4.8-5.6) Triglycerides Level 162mg/dL (0-149) Cholesterol Level 132mg/dL (100-199) LDL Cholesterol, Calculated 69.600mg/dL (0-99) VLDL Cholesterol 32.400mg/dL HDL Cholesterol 30mg/dL (>39) Cholesterol/HDL Ratio 4.40 (0.0-4.4) Test 10/30/16 09:17 White Blood Count 4.3th/mm3 (3.8-10.1) Red Blood Count 4.68mil/mm3 (3.90-5.20) Hemoglobin 13.5g/dL (12.0-15.6) Hematocrit 43.1% (35.0-46.0) Mean Corpuscular Volume 92.1fL (81-100) Mean Corpuscular Hemoglobin 28.8pg (27.0-35.0) Mean Corpuscular Hemoglobin Concent 31.3% (32.0-37.0) Red Cell Distribution Width 14.6% (12.3-15.4) Platelet Count 235bil/L (150-400) Neutrophils (%) (Auto) 64.5% (40-74) Lymphocytes (%) (Auto) 21.7% (14-46) Monocytes (%) (Auto) 9.9% (4-12) Eosinophils (%) (Auto) 3.0% (0-5) Basophils (%) (Auto) 0.7% (0-3) Sodium Level 139mEq/L (134-144) Potassium Level 4.4mEq/L (3.5-5.2) Chloride Level 98mEq/L (97-108) Carbon Dioxide Level 32mmol/L (18-29) Blood Urea Nitrogen 13mg/dL (6-24) Creatinine 0.55mg/dL (0.57-1.00) Estimat Glomerular Filtration Rate 168mL/min (>59) Glucose Level 192mg/dL (60-99) Calcium Level 9.1mg/dL (8.5-10.1) Total Bilirubin 0.2mg/dL (0.0-1.2) Aspartate Amino Transf (AST/SGOT) 17U/L (0-50) Alanine Aminotransferase (ALT/SGPT) 23U/L (0-32) Alkaline Phosphatase 81U/L (25-150) Total Protein 5.8g/dL (6.4-8.4) Albumin 3.3g/dL (3.4-5.0) Microbiology Results Microbiology 10/28/16 Blood Culture, Received Pending 10/28/16 Urine Culture, Received Pending Discharge Medications Discharge Medications Aspirin (Aspirin) 81 Mg Tablet 81 MG PO DAILY (Reported) Atenolol (Atenolol) 25 Mg Tablet 25 MG PO DAILY (Reported) Atorvastatin (Lipitor) 10 Mg Tab 10 MG PO HS (Reported) Baclofen (Baclofen) 10 Mg Tablet 10 MG PO QID Prescribed by: SYED HANLEY MD Budesonide/Formoterol 160-4.5 mcg Inh (Symbicort 160-4.5 mcg Inh) 120 Puff Inhaler 2 PUFFS INHALATION BID (Reported) Citalopram (Citalopram) 40 Mg Tablet 40 MG PO DAILY (Reported) Dextroamphetamine/Amphetamine ER (Adderall XR) 10 Mg Capsule 10 MG PO DAILY Prescribed by: SYED HANLEY MD Insulin Detemir (Levemir U100 Insulin Vial) 100 Unit/1 Ml Vial 50 UNIT SUBQ MORNING (Reported) Levothyroxine (Levothyroxine) 50 Mcg Tablet 50 MCG PO QAM (Reported) Metformin (Metformin) 850 Mg Tablet 850 MG PO DAILY (Reported) Nystatin (Nystatin) 1 Each Powder.ea. 1 APPLIC TOPICAL BID Prescribed by: ERNETTA MORENO MD Pantoprazole DR (Protonix) 40 Mg Tablet 40 MG PO DAILY Prescribed by: SYED HANLEY MD Pramipexole Dihydrochloride (Mirapex) 0.5 Mg Tablet 0.5 MG PO TID (Reported) Ranitidine (Zantac) 150 Mg Tablet 150 MG PO BID (Reported) Sulfamethoxazole/Trimeth 800-160 mg (Bactrim DS) 1 Each Tablet 1 TABLET PO BID Prescribed by: SYED HANLEY MD As needed Ibuprofen (Ibuprofen) 800 Mg Tablet 800 MG PO TID PRN PRN For Pain (Reported) oxyCODONE-Acetaminophen 10-325 mg (oxyCODONE-Acetaminophen 10-325 mg) 1 Each Tablet 1 TAB PO Q6H PRN PRN For Pain Prescribed by: RENETTA MORENO MD Followup Plan Disposition: Home with home health Follow-up plan Please follow-up with PCP in 1 week. Discharge Diet: Low fat, Low Sodium, Heart Healthy, Diabetic Discharge Activity: Limited until seen by PCP Patient Instructions You were hospitalized due to superficial right buttock ulceration and UTI . No sign of infection on ulceration.. antibiotics given for UTI . Please continue Bactrim for 3 more days. Wound care nurse evaluated on recent hospitalization recommend doing local skin care at home and trying to keep the area dry as much as possible. Superficial ulceration unchanged from recent hospitalization. Ulceration does not look to be related to pressure sore based on location. Please follow-up with PCP in 1 week. Follow-up Provider: Anjel Stone MD Follow-up with PCP in: 1 week copies to: Anjel Stone MD, Melaku MD Oct 31, 2016 13:02
[2016-10-31 13:10] VITALS: BP 138/85; PULSE 79; RESP 20; O2SAT 93
[2016-10-31 17:24] VITALS: BP 130/67; PULSE 69; RESP 20; O2SAT 95
--- NOTE | 2016-10-31 18:25 | NUR ---
Pt mood Pt upset about having to stay another night in hospital. Explained reasons, pt understands, anxious to go home. Continue to monitor
[2016-10-31 20:55] VITALS: BP 101/60; PULSE 68; RESP 21; O2SAT 95
[2016-11-01] MEDS: Heparin 5,000 Unit/mL Inj SUBQ SCH ×2 (00:16→10:40)
[2016-11-01] MEDS: HYDROcodone-APAP 10-325 mg PO PRN ×3 (00:16→15:11)
[2016-11-01 04:51] VITALS: BP 114/77; PULSE 53; RESP 23; O2SAT 94
--- NOTE | 2016-11-01 05:02 | NUR ---
Skin care Improvement seen in skin on buttocks, using barrier cream wipes for protection; redness and peeling skin areas reduced. Area on right buttock continues to ooze blood, edges well defined and healing noted; smaller area on left thigh also continues to bleed slightly. Pain well controlled with [place]. Pt tolerates cleaning and moves self well in bed. Hourly rounding ongoing.
[2016-11-01] MEDS: Insulin LISPRO 300 Unit/3 mL Inj SUBQ SCH ×2 (08:00→12:00)
[2016-11-01] MEDS: SYMBICORT INHALATION SCH (08:30)
--- NOTE | 2016-11-01 10:04 | NUR ---
Arranged [facility] transport through [facility], faxed form and requested 11Am bead picker per PRACTICE BILLING ASSOCIATE Addendum: 11/01/16 at 1045 by SADE REDD CM [facility] can not get transport here until 1600, there is one van that can accommodate this patient and it is on a run to [place]. Updated PRACTICE BILLING ASSOCIATE
[2016-11-01 10:22] VITALS: BP 141/77; PULSE 86; RESP 20; O2SAT 95
[2016-11-01] MEDS: Nystatin 100,000 Unit/Gm 15 Gm Powder TOPICAL SCH (10:39)
[2016-11-01] MEDS: Pantoprazole 40 mg ER24 Tablet PO SCH (10:44)
[2016-11-01] MEDS: Trimethoprim-Sulfa 160 mg-800 mg Tablet PO SCH (10:44)
[2016-11-01] MEDS: Insulin GLARgine 100 Unit/mL Syringe SUBQ SCH (10:45)
--- NOTE | 2016-11-01 12:27 | NUR ---
Social Work Discharge D: EMR Reviewed. Pt is on day 4 of [place] for Decubitus, Failure to thrive. Pt lives in [place] and has 138 hours of [employer] Caregiving per month. Pt has been medically stable however transportation has been unable to be arranged that is appropriate for the Pt's size. Transportation has been arranged for 1600 today via cabulance. Transportation company will require borrowing wheel chair and oxygen from hospital. SHAHAB updated RN and charge nurse as to d/c. SHAHAB spoke with NITHIN Crowder who is concerned about Pt returning home. Pt reportedly has a qualifying hospital stay and recently left a SNF. SAHHAB encouraged working with Pt's PCP to get Pt back to SNF if PCP believes this is necessary. Pt's caregivers report difficulty assisting Pt with ADLs and Pt frequently sitting in wet depends because she is unable to get to the restroom. [facility] Provides caregiving services and has been updated as to d/c time. [facility] unable to provide caregivers this evening due to the late d/c. Pt reports she has a friend that can come over and assist as needed. SHAHAB contacted Melany Ramirez to update regarding Pt discharging and resuming services. All parties updated and agreeable to plan. A: Pt with [facility] P: Pt is medically stable and discharging home via [facility] at 1600. Pt to resume [facility] REYES at discharge. All parties updated and agreeable to plan. MARLON Garcia
--- NOTE | 2016-11-01 14:20 | PCM.DC.MED ---
Discharge Summary Date of Service Nov 01, 2016 Dates of Hospitalization Date of Hospital Admission Oct 28, 2016 at 19:30 Date of Discharge: Oct 31, 2016 Providers: Admitting Physician: Monica Pruett MD Primary Care Physician: Anjel Stone MD Attending Physician: Monica Pruett MD Diagnosis at Time of Discharge Diagnosis at Time of Discharge # Perineal/right gluteal superficial irritation and ulceration ,acute,recurrent ,poa #Bilateral lower extremity erythema, no ulcers, likely Gr1 pressure sore, DVT study negative on recent admission .acute, # Urinary tract infection (complicated in a diabetic), present on admission, acute Chronic, stable # Asthma, present on admission, chronic # Obstructive sleep apnea and obesity-related hypoventilation, present on admission, chronic # Diabetes mellitus type 2, present on admission, chronic # Hypothyroid, present on admission, chronic # Depression, present on admission, chronic # Chronic pain, present on admission # Dyslipidemia, present on admission, chronic # Hypertension, present on admission, chronic #GERD, present on admission, chronic # Restless legs syndrome, present on admission, chronic # Morbid obesity, present on admission, chronic Consultations No jd edwards consultant was involved on this case Procedures XRay, CTs & MRIs Date of Service: 10/28/16 1409 PROCEDURE: X-RAY CHEST ONE VIEW, PORTABLE ([id number]) INDICATIONS: weakness TECHNIQUE: One view of the chest was acquired. COMPARISON: [facility], CR, XR CHEST 1VW, 06/04/2016, 13:46. [facility], CR, XR CHEST 1VW (PORTABLE), 05/26/2016, 16:18. FINDINGS: Surgical changes and devices: None. Lungs and pleura: No pleural effusions or pneumothorax. Lungs are clear. Mediastinum: Mediastinal contours appear normal. Heart size is normal. Bones and chest wall: No suspicious bony lesions. Overlying soft tissues appear unremarkable. IMPRESSION: No acute cardiopulmonary disease. Dictated by: Catalina Barksdale M.D. on 10/28/2016 at 14:39 ECG 12 Lead ECG Interpretation: Sinus rhythm with a a QRS of 121 otherwise nothing acute. Time: 15:30 Interpreted by: ED physician Sinus rhythm with a rate of 75, QTc 465 Resident Rhonda . Other Diagnostics Date of Service: 10/23/16 0852 PROCEDURE: US VENOUS LEG DUPLEX BILATERAL INDICATIONS: Swelling, ro DVT TECHNIQUE: Real-time imaging, as well as color and pulse Doppler interrogation, were performed of the deep veins of both legs from the inguinal ligament to the popliteal fossa. COMPARISON: [facility], , US VENOUS LEG DPLX BILEFRA, 06/05/2016, 10 :24. FINDINGS: The deep veins are normally compressible, and free of intraluminal thrombus. Color and pulse Doppler demonstrate normal phasic intravascular flow. There is normal augmentation response to distal compression maneuver. IMPRESSION: No DVT bilaterally. Dictated by: Jitendra Mcmahan M.D. on 10/23/2016 at 12:26 Brief History The patient is a 51 year-old female with history of diabetes mellitus, decubitus ulcers, morbid obesity, hypothyroidism, osteoarthritis, hypertension. GERD, asthma, restless leg syndrome, and depression, who presented to the emergency department complaining of left lower extremity pain and swelling that has worsened over the last few days. She denies recent falls or trauma. She has also noticed increased weakness and is unable to get herself out of her chair at home. 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 She was recently hospitalized from 10/23-10/25 for the same symptoms. She was able to walk at home after she was discharged. She feels like she needs more help with her health in general and feels that she is not able to adequately care for herself. Hospital Course The patient is a 51 year-old female with history of diabetes mellitus, decubitus ulcers, morbid obesity, hypothyroidism, osteoarthritis, hypertension. GERD, asthma, restless leg syndrome, and depression, who presented to the emergency department complaining of left lower extremity pain and swelling that has worsened over the last few days. She feels that she cannot adequately take care of herself at home. # Perineal/right gluteal superficial irritation and ulceration ,acute,recurrent ,poa - Overall, this presentation is very similar to prior presentation. - Continue home Wound care - Nystatin topical twice a day -no need for antibiotics # Bilateral lower extremity erythema, present on admission, chronicity unknown - no ulcers - DVT study 6 days ago was negative -Observation for now # Urinary tract infection (complicated in a diabetic), present on admission, acute - 6-10 WBC, no epithelial cells, many bacteria, small leukocyte esterase, large occult blood - Urine culture growing Klebsiella pansensitive - Bactrim DS, 1 tab PO BID 3 more days # Asthma, present on admission, chronic - patient to use her home Spiriva - DuoNebs, albuterol # Obstructive sleep apnea and obesity-related hypoventilation, present on admission, chronic - patient states that she lost her CPAP - Needs to see PCP and get a prescription # Diabetes mellitus type 2, present on admission, chronic - Pt takes glargine, 100 units in the a.m. - Pt states even at this amount her diabetes has been out of control -Advised to check her glucose 3 times a day and adjust accordingly - A1c 6.9 # Hypothyroid, present on admission, chronic - Continue levothyroxine # Depression, present on admission, chronic - Continue citalopram # Chronic pain, present on admission - Continue baclofen, changed her oxycodone to hydrocodone (pt says oxycodone stopped working) # Dyslipidemia, present on admission, chronic - Continue aspirin, atorvastatin (kidneys are okay) # Hypertension, present on admission, chronic Continue atenolol #GERD, present on admission, chronic - continue Protonix, ranitidine # Restless legs syndrome, present on admission, chronic - Continue pramipexole # Morbid obesity, present on admission, chronic - BMI 68.8 -Patient states was evaluated for bariatric surgery. She has lost 100 pound by herself and she will follow-up Code status: DNR/DNI confirmed with patient discharge home with home health. Reinforced the need for local wound care and frequent repositioning Condition on discharge stable Exam Vital Signs (Last) Date Time Temp Pulse Resp B/P Pulse Ox O2 Delivery O2 Flow Rate FiO2 11/01/16 10:22 36.7 86 20 141/77 95 Nasal Cannula 1.50 Exam General: alert, oriented x3, cooperative, no acute distress, morbidly obese, Eyes: PERRL, scleral anicteric Mouth: mouth normal, mucous membranes moist/pink Neck: supple, no thyromegaly, trachea midline Chest & Lungs: Difficult to assess with body habitus, did hear expiratory wheezing anterior B/L Cardiovascular: no murmurs/rubs/gallops, regular rate/rhythm Pulses: Radial (present and equal) Abdomen: soft, non-tender, non-distended, normoactive bowel tones Skin: B/L buttocks have erythema and skin breakdown. Right gluteal superficial skin ulceration Extremities: B/L LE edema, erythema and much worse on the left than the right Psych: Poor insight, appropriate mood and affect Test 10/28/16 14:50 10/28/16 15:12 10/28/16 16:20 10/29/16 08:09 Troponin T < 0.010ug/L (0.0-0.011) Pro-B-Type Natriuretic Peptide 78.68pg/mL (0-249) Lactic Acid Level 1.4mmol/L (0.4-2.0) Procalcitonin < 0.05ng/mL (See Comment) Urine Color Yellow (YELLOW) Urine Appearance Hazy (CLEAR,HAZY) Urine pH 6.5 (5.0-8.0) Urine Specific [place] 1.025 (1.003-1.035) Urine Protein Tracemg/dL (NEG,TRACE) Urine Glucose (UA) 500mg/dL (NEGATIVE) Urine Ketones Negativemg/dL (NEGATIVE) Urine Occult Blood Large (NEGATIVE) Urine Nitrite Negative (NEGATIVE) Urine Bilirubin Negative (NEGATIVE) Urine Urobilinogen 1.0mg/dL (NORMAL) Urine Leukocyte Esterase Small (NEGATIVE) Urine RBC 3-10/hpf (0-2) Urine WBC 6-10/hpf (0-5) Urine Epithelial Cells None/hpf (NONE-MOD) Urine Crystals None seen (NONE SEEN) Urine Bacteria Many/hpf (NONE-FEW) Urine Hyaline Casts None/lpf (NONE) Urine Granular Casts None seen (NONE SEEN) Urine Waxy Casts None seen (NONE SEEN) Urine Red Blood Cell Casts None seen (NONE SEEN) Urine White Blood Cell Casts None seen (NONE SEEN) Urine Mucus Present (None Seen) Urine Trichomonas None seen (NONE SEEN) Urine Yeast None (NONE SEEN) Urinalysis Comment None Urine Culture Reflexed Indicated Hemoglobin A1c 6.9% (4.8-5.6) Triglycerides Level 162mg/dL (0-149) Cholesterol Level 132mg/dL (100-199) LDL Cholesterol, Calculated 69.600mg/dL (0-99) VLDL Cholesterol 32.400mg/dL HDL Cholesterol 30mg/dL (>39) Cholesterol/HDL Ratio 4.40 (0.0-4.4) Test 10/30/16 09:17 White Blood Count 4.3th/mm3 (3.8-10.1) Red Blood Count 4.68mil/mm3 (3.90-5.20) Hemoglobin 13.5g/dL (12.0-15.6) Hematocrit 43.1% (35.0-46.0) Mean Corpuscular Volume 92.1fL (81-100) Mean Corpuscular Hemoglobin 28.8pg (27.0-35.0) Mean Corpuscular Hemoglobin Concent 31.3% (32.0-37.0) Red Cell Distribution Width 14.6% (12.3-15.4) Platelet Count 235bil/L (150-400) Neutrophils (%) (Auto) 64.5% (40-74) Lymphocytes (%) (Auto) 21.7% (14-46) Monocytes (%) (Auto) 9.9% (4-12) Eosinophils (%) (Auto) 3.0% (0-5) Basophils (%) (Auto) 0.7% (0-3) Sodium Level 139mEq/L (134-144) Potassium Level 4.4mEq/L (3.5-5.2) Chloride Level 98mEq/L (97-108) Carbon Dioxide Level 32mmol/L (18-29) Blood Urea Nitrogen 13mg/dL (6-24) Creatinine 0.55mg/dL (0.57-1.00) Estimat Glomerular Filtration Rate 168mL/min (>59) Glucose Level 192mg/dL (60-99) Calcium Level 9.1mg/dL (8.5-10.1) Total Bilirubin 0.2mg/dL (0.0-1.2) Aspartate Amino Transf (AST/SGOT) 17U/L (0-50) Alanine Aminotransferase (ALT/SGPT) 23U/L (0-32) Alkaline Phosphatase 81U/L (25-150) Total Protein 5.8g/dL (6.4-8.4) Albumin 3.3g/dL (3.4-5.0) Microbiology Results Microbiology 10/28/16 Blood Culture, Received Pending 10/28/16 Urine Culture, Received Pending Discharge Medications Discharge Medications Aspirin (Aspirin) 81 Mg Tablet 81 MG PO DAILY (Reported) Atenolol (Atenolol) 25 Mg Tablet 25 MG PO DAILY (Reported) Atorvastatin (Lipitor) 10 Mg Tab 10 MG PO HS (Reported) Baclofen (Baclofen) 10 Mg Tablet 10 MG PO QID Prescribed by: SYED HANLEY MD Budesonide/Formoterol 160-4.5 mcg Inh (Symbicort 160-4.5 mcg Inh) 120 Puff Inhaler 2 PUFFS INHALATION BID (Reported) Citalopram (Citalopram) 40 Mg Tablet 40 MG PO DAILY (Reported) Dextroamphetamine/Amphetamine ER (Adderall XR) 10 Mg Capsule 10 MG PO DAILY Prescribed by: SYED HANLEY MD Insulin Detemir (Levemir U100 Insulin Vial) 100 Unit/1 Ml Vial 50 UNIT SUBQ MORNING (Reported) Levothyroxine (Levothyroxine) 50 Mcg Tablet 50 MCG PO QAM (Reported) Metformin (Metformin) 850 Mg Tablet 850 MG PO DAILY (Reported) Nystatin (Nystatin) 1 Each Powder.ea. 1 APPLIC TOPICAL BID Prescribed by: RENETTA MORENO MD Pantoprazole DR (Protonix) 40 Mg Tablet 40 MG PO DAILY Prescribed by: SYED HANLEY MD Pramipexole Dihydrochloride (Mirapex) 0.5 Mg Tablet 0.5 MG PO TID (Reported) Ranitidine (Zantac) 150 Mg Tablet 150 MG PO BID (Reported) Sulfamethoxazole/Trimeth 800-160 mg (Bactrim DS) 1 Each Tablet 1 TABLET PO BID Prescribed by: SYED HANLEY MD As needed Ibuprofen (Ibuprofen) 800 Mg Tablet 800 MG PO TID PRN PRN For Pain (Reported) oxyCODONE-Acetaminophen 10-325 mg (oxyCODONE-Acetaminophen 10-325 mg) 1 Each Tablet 1 TAB PO Q6H PRN PRN For Pain Prescribed by: RENETTA MORENO MD Followup Plan Disposition: Home home health Follow-up plan Please follow-up with PCP in 1 week. Discharge Diet: Low fat, Low Sodium, Heart Healthy, Diabetic Discharge Activity: Limited until seen by PCP Patient Instructions You were hospitalized due to superficial right buttock ulceration and UTI . No sign of infection on ulceration.. antibiotics given for UTI . Please continue Bactrim for 3 more days. Wound care nurse evaluated on recent hospitalization recommend doing local skin care at home and trying to keep the area dry as much as possible. Superficial ulceration unchanged from recent hospitalization. Ulceration does not look to be related to pressure sore based on location. Please follow-up with PCP in 1 week. Follow-up Provider: Anjel Stone MD Follow-up with PCP in: 1 week copies to: Anjel Stone MD, Melaku MD Nov 01, 2016 14:20
--- NOTE | 2016-11-01 16:43 | NUR ---
Discharge Patient discharged home. IV DC'd and intact. Discharge instructions given with no questions. RX faxed to [facility] and original sent with patient. All belongings sent with patient. [employer] PR[employer] escorted patient out via W/C.
== END 2016-11-01 16:06 | disposition home health service (06) ==
LOC: SED 13:57 → OSC 19:30
PROVIDERS: ADMIT Specialist; ATTEND Specialist
DX: L89.312 Pressure ulcer of right buttock, stage 2 (principal); L53.8 Other specified erythematous conditions; N39.0 Urinary tract infection, site not specified; J45.909 Unspecified asthma, uncomplicated; G47.33 Obstructive sleep apnea (adult) (pediatric); E11.9 Type 2 diabetes mellitus without complications; E03.9 Hypothyroidism, unspecified; F32.9 Major depressive disorder, single episode, unspecified; G89.4 Chronic pain syndrome; E78.5 Hyperlipidemia, unspecified; I10 Essential (primary) hypertension; K21.9 Gastro-esophageal reflux disease without esophagitis; G25.81 Restless legs syndrome; E66.01 Morbid (severe) obesity due to excess calories; Z68.44 Body mass index [BMI] 60.0-69.9, adult; M19.90 Unspecified osteoarthritis, unspecified site; F17.210 Nicotine dependence, cigarettes, uncomplicated; Z66 Do not resuscitate; Z79.4 Long term (current) use of insulin; Z79.84 Long term (current) use of oral hypoglycemic drugs; Z79.82 Long term (current) use of aspirin
CPT/HCPCS: 36415; 71010; 80053; 80061; 81000; 82308; 82948; 83036; 83605; 83880; 84484; 85025; 87040; 87077; 87086; 87186; 90791; 96361; 96374; 96375; 96376; 99285; G0378; J1170; J1644; J1815; J2405; J7030